=== PATIENT | male | born 1980 | race Caucasian/White ===

== ENCOUNTER → 2018-04-07 | Outpatient (CLI) | payer MEDICARE | LOC: M RAD 12:29 | DX: R26.1 Paralytic gait (principal) | CPT/HCPCS: 76775 ==

== ENCOUNTER → 2020-03-25 | Outpatient (CLI) | payer MEDICARE ==
--- NOTE | 2020-04-22 14:08 | REP ---
NUCLEAR RENAL SCAN WITH FLOW AND FUNCTION: COMPARISON: 05/04/16 HISTORY: Quadriplegia FINDINGS: Following the intravenous administration of 8.8 mCi technetium-99m MAG3, immediate flow images are obtained in the posterior projection. There is fairly symmetrical perfusion of both kidneys. Delayed images are performed every minute for a period of 30 minutes. The right kidney appears slightly smaller than the left. There is bilateral cortical uptake and excretion. There appears to be an extrarenal pelvis on the left. There is no evidence of hydronephrosis. Split function is 53.2% on the left and 46.8% on the right. Time to peak is 3 minutes bilaterally, which is essentially normal. T1/2 is normal bilaterally, 7.7 minutes on the left and 5.9 minutes on the right. Renal function curves are normal. There is minimal post void residual in the urinary bladder after voiding. IMPRESSION: Essentially unremarkable renal nuclear scan with good renal function bilaterally. MTDD
== END ==
LOC: M RAD 12:11
PROVIDERS: ATTEND Physical Medicine & Rehabilitation
DX: G82.54 Quadriplegia, C5-C7 incomplete (principal)
CPT/HCPCS: 78707; A9562

== ENCOUNTER → 2021-11-23 | Outpatient (CLI) | payer MEDICARE | LOC: M WHC 13:05 | PROVIDERS: ATTEND Physical Medicine & Rehabilitation | DX: R26.1 Paralytic gait (principal) ==

== ENCOUNTER → 2021-12-08 | Outpatient (CLI) | payer MEDICARE | LOC: M PLAIMG 08:59 | PROVIDERS: ATTEND Physical Medicine & Rehabilitation | DX: M47.12 Other spondylosis with myelopathy, cervical region (principal) ==

== ENCOUNTER → 2021-12-24 | Outpatient (CLI) | payer MEDICARE | LOC: M RAD 13:44 | PROVIDERS: ATTEND Physical Medicine & Rehabilitation | DX: R26.1 Paralytic gait (principal) | CPT/HCPCS: 78707; A9562 ==